=== PATIENT | male | born 1985 | race American Indian/Alaskan Native ===

== ENCOUNTER 2021-12-30 05:26 | Inpatient (IN) | payer SELFPAY ==
--- NOTE | 2021-12-30 07:14 | Emergency Department Report ---
ED Seizure HPI - General Chief Complaint: Seizure Stated Complaint: SEIZURE Time Seen by Provider: 12/30/21 06:27 Source: EMS Mode of arrival: Stretcher Limitations: No Limitations - History of Present Illness Initial Comments: 36-year-old male with a past medical history of alcohol abuse and unspecified heart condition presents to the hospital complaints of multiple seizures. Patient had several seizures witnessed by family. EMS arrived and he initially declined treatment and transport after their arrival. Patient had additional seizures and then subsequently was transported to the ED. Family reports that patient stop drinking alcohol 3 to 4 days ago. states that he has had tremors, confusion, and hallucinations during the last several days. patient is postictal and confused and unable to provide any history of present illness. No meds provided in route - Related Data Allergies Allergy/AdvReac Type Severity Reaction Status Date / Time No Known Allergies Allergy Unverified 12/30/21 06:56 ED Review of Systems ROS: Stated complaint: SEIZURE Other details as noted in HPI Comment: Unobtainable due to pts medical conditions ED Physical Exam - General Limitations: No Limitations - Other Other exam information: General: No acute distress Head: Atraumatic Eyes: normal appearance ENT: Mild lower lip injury/abrasion Neck: Normal appearance, no midline tenderness Chest: Clear to auscultation bilaterally CV: Tachycardic regular rhythm Abdomen: Soft, normal bowel sounds, nontender, nondistended, no rebound or guarding Back: Normal inspection Extremity: Normal inspection, diffusely tender to palpate Neuro: Altered, lethargic, responds to tactile stimulation but speaks incomprehensible words Skin: No rash ED Course Vital Signs 12/30/21 12/30/21 12/30/21 06:16 09:25 09:26 Temperature 98.1 F Pulse Rate 118 H 100 H Respiratory 20 16 Rate Blood Pressure 99/66 132/82 [Left] O2 Sat by Pulse 98 100 100 Oximetry ED Medical Decision Making - Lab Data Result diagrams: 12/30/21 06:47 12/30/21 06:47 Lab Results 12/30/21 12/30/21 12/30/21 Range/Units 06:47 06:47 06:47 WBC 9.5 (4.5-11.0) K/mm3 RBC 4.91 (3.65-5.03) M/mm3 Hgb 14.4 (11.8-15.2) gm/dl Hct 43.2 (35.5-45.6) % MCV 88 (84-94) fl MCH 29 (28-32) pg MCHC 33 (32-34) % RDW 13.4 (13.2-15.2) % Plt Count 200 (140-440) K/mm3 Lymph % (Auto) 14.0 (13.4-35.0) % [place] % (Auto) 7.1 (0.0-7.3) % Eos % (Auto) 0.6 (0.0-4.3) % Baso % (Auto) 0.3 (0.0-1.8) % Lymph # (Auto) 1.3 (1.2-5.4) K/mm3 [place] # (Auto) 0.7 (0.0-0.8) K/mm3 Eos # (Auto) 0.1 (0.0-0.4) K/mm3 Baso # (Auto) 0.0 (0.0-0.1) K/mm3 Seg Neutrophils % 78.0 H (40.0-70.0) % Seg Neutrophils # 7.4 (1.8-7.7) K/mm3 Sodium 127 L (137-145) mmol/L Potassium 4.1 (3.6-5.0) mmol/L Chloride 90.3 L (98-107) mmol/L Carbon Dioxide 22 (22-30) mmol/L Anion Gap 19 mmol/L BUN 13 (9-20) mg/dL Creatinine 1.2 (0.8-1.3) mg/dL Estimated GFR > 60 ml/min BUN/Creatinine Ratio 11 % Glucose 95 (75-100) mg/dL Calcium 10.4 H (8.4-10.2) mg/dL Magnesium 2.10 (1.7-2.3) mg/dL Total Bilirubin 1.00 (0.1-1.2) mg/dL AST 55 H (5-40) units/L ALT 23 (7-56) units/L Alkaline Phosphatase 56 (35-129) units/L Total Protein 8.2 (6.3-8.2) g/dL Albumin 4.9 (3.9-5) g/dL Albumin/Globulin Ratio 1.5 % Plasma/Serum Alcohol < 0.01 (0-0.07) % - EKG Data -: EKG Interpreted by Me (biatrial enlargement) EKG shows normal: sinus rhythm, ST-T waves (lvh) Rate: tachycardia (125) - EKG Data When compared to previous EKG there are: previous EKG unavailable - Radiology Data Radiology results: report reviewed CT head/brain wo con, CT cervical spine wo con INDICATION: alcoholic, seizure. TECHNIQUE: CT head and cervical spine without contrast. All CT scans at this location are performed using CT dose reduction for ALARA by means of automated exposure control. COMPARISON: None. FINDINGS: HEAD: Intracranial: Frazier-white matter differentiation is maintained. No intracranial hemorrhage. No extra axial collection.. No hydrocephalus. No herniation. Sinuses: Paranasal sinuses and mastoid air cells are essentially clear. Orbits: Globes are intact Calvarium: No acute fracture. CERVICAL: Alignment: Normal alignment. Vertebrae: No fracture. Vertebral body heights are preserved. C1 and C2 are congruent. Atlantooccipital joint is maintained. Spondylolysis: Mild spondylosis at C3-C4, C4-C5, C5-C6. Sclerosis and degenerative endplate changes at C3-C4. Soft tissues: No prevertebral soft tissue thickening. Additional findings: No significant additional findings. IMPRESSION: 1. No acute intracranial abnormality. 2.No cervical spine fracture. - Medical Decision Making 36-year-old male presents to the hospital with seizures and prolonged confusion. Fianc states that he has been tremulous with increasing confusion and hallucinations since stopping alcohol cold turkey 3 to 4 days ago. Patient received Keppra and Ativan in the ED. Will be placed on CIWA protocol and admitted to the hospitalist service for alcohol withdrawal delirium Critical Care Time: No Critical care attestation.: If time is entered above; I have spent that time in minutes in the direct care of this critically ill patient, excluding procedure time. ED Disposition Clinical Impression: Seizure, Alcohol withdrawal, Alcohol withdrawal delirium Disposition: ADMITTED INPATIENT Is pt being admited?: Yes Condition: Stable Time of Disposition: 12:03
[2021-12-30 07:16] LABS: Basophils % (Auto) 0.3 % (0.0-1.8); Eosinophils # (Auto) 0.1 K/mm3 (0.0-0.4); Eosinophils % (Auto) 0.6 % (0.0-4.3); Hematocrit 43.2 % (35.5-45.6); Hemoglobin 14.4 gm/dl (11.8-15.2); Lymphocytes # (Auto) 1.3 K/mm3 (1.2-5.4); Mean Corpuscular HGB Conc 33 % (32-34); Mean Corpuscular Volume 88 fl (84-94); Monocytes # (Auto) 0.7 K/mm3 (0.0-0.8); Monocytes % (Auto) 7.1 % (0.0-7.3); Platelet Count 200 K/mm3 (140-440); Red Blood Count 4.91 M/mm3 (3.65-5.03); Red Cell Distribution Width 13.4 % (13.2-15.2)
[2021-12-30 07:26] LABS: Alanine Aminotransferase 23 units/L (7-56); Albumin 4.9 g/dL (3.9-5); BUN/Creatinine Ratio 11; Blood Urea Nitrogen 13 mg/dL (9-20); Calcium 10.4 mg/dL (8.4-10.2); Hemolysis Index 2
[2021-12-30] MEDS ORDERED: LORazepam 2 MG/ML VIAL IV ONE (07:59)
[2021-12-30] MEDS ORDERED: levETIRAcetam 1000 MG/NS 0.75% 1,000 MG/100 ML BAG IV SCH (08:00)
[2021-12-30] MEDS ORDERED: SODIUM CHLORIDE 0.9% 1000 ML 1,000 ML IV ONE (08:00)
--- NOTE | 2021-12-30 08:11 | Electrocardiograph Report ---
[facility] Test Date: 2021-12-30 Test Time: 07:38:25 Pat Name: BARBARA RAMACHANDRAN Department: Room: Gender: M Country Director: ANTONIO : 1985 Requested By: AC SMART Order Number: [id number] Reading MD: Tyler Penaloza Measurements Intervals [place] Rate: 125 P: 87 OR: 148 QRS: 95 QRSD: 95 T: 60 QT: 325 QTc: 469 Interpretive Statements Sinus tachycardia LAE, consider biatrial enlargement Left ventricular hypertrophy ST elev, probable normal early repol pattern No previous ECG available for comparison Electronically Signed On 12-30-2021 8:10:49 EDT by Tyler Penaloza
[2021-12-30] MEDS ORDERED: THIAMINE 100 MG, FOLIC ACID 1 MG, MULTIPLE VITAMIN INJ, ADULT 10 ML in SODIUM CHLORIDE ... IV ONE (08:30)
--- NOTE | 2021-12-30 09:24 | Cat Scan Report ---
CT head/brain wo con, CT cervical spine wo con INDICATION: alcoholic, seizure. TECHNIQUE: CT head and cervical spine without contrast. All CT scans at this location are performed u sing CT dose reduction for ALARA by means of automated exposure control. COMPARISON: None. FINDINGS: HEAD: Intracranial: Frazier-white matter differentiation is maintained. No intracranial hemorrhage. No extra a xial collection.. No hydrocephalus. No herniation. Sinuses: Paranasal sinuses and mastoid air cells are essentially clear. Orbits: Globes are intact Calvarium: No acute fracture. CERVICAL: Alignment: Normal alignment. Vertebrae: No fracture. Vertebral body heights are preserved. C1 and C2 are congruent. Atlantooccipi darrius joint is maintained. Spondylolysis: Mild spondylosis at C3-C4, C4-C5, C5-C6. Sclerosis and degenerative endplate changes a t C3-C4. Soft tissues: No prevertebral soft tissue thickening. Additional findings: No significant additional findings. IMPRESSION: 1. No acute intracranial abnormality. 2.No cervical spine fracture. Signer Name: Sid Boyer MD Signed: 12/30/2021 9:20 AM Workstation Name: [id number]
[2021-12-30] MEDS ORDERED: ONDANSETRON 4 MG/2 ML INJ IV PRN (12:24)
[2021-12-30] MEDS ORDERED: HYDROmorphone 1 MG/1 ML INJ IV PRN (12:24)
[2021-12-30] MEDS ORDERED: MORPHINE 2 MG/1 ML INJ IV PRN (12:24)
[2021-12-30] MEDS ORDERED: ACETAMINOPHEN 325 MG TAB PO PRN (12:24)
[2021-12-30] MEDS ORDERED: METOCLOPRAMIDE 10 MG/2 ML INJ IV PRN (12:24)
[2021-12-30] MEDS: FAMOTIDINE 20 MG/2 ML INJ IV SCH ×2 (13:29→21:29)
--- NOTE | 2021-12-30 14:03 | Consultation ---
History of Present Illness Consult date: 12/30/21 Reason for Consult: Alcoholism and recurrent seizure History of present illness: 36-year-old male with a past medical history of alcohol abuse and unspecified heart condition presents to the hospital complaints of multiple seizures. Patient had several seizures witnessed by family. EMS arrived and he initially declined treatment and transport after their arrival. Patient had additional seizures and then subsequently was transported to the ED. Family reports that patient stop drinking alcohol 3 to 4 days ago. states that he has had tremors, confusion, and hallucinations during the last several days. patient is postictal and confused and unable to provide any history of present illness. No meds provided in route In ER he is seizure free lethargic not follow command,move all limbs CT brain is unremarkable he was loaded with keppra 1000 mg IV and ativan prn started on thiamine - Related Data Allergies Allergy/AdvReac Type Severity Reaction Status Date / Time No Known Allergies Allergy Unverified 12/30/21 06:56 ED Review of Systems ROS: Stated complaint: SEIZURE Other details as noted in HPI Comment: Unobtainable due to pts medical conditions Medications and Allergies Allergies Allergy/AdvReac Type Severity Reaction Status Date / Time No Known Allergies Allergy Unverified 12/30/21 06:56 Active Meds: Active Medications Acetaminophen (Acetaminophen 325 Mg Tab) 650 mg PO Q4H PRN PRN Reason: Pain MILD(1-3)/Fever >100.5/[place] Famotidine (Famotidine 20 Mg/2 Ml Inj) 20 mg IV BID DAVINA Last Admin: 12/30/21 13:29 Dose: 20 mg Heparin Sodium (Porcine) (Heparin 5,000 Unit/1 Ml Vial) 5,000 unit SUB-Q Q12HR DAVINA Hydromorphone HCl (Hydromorphone 1 Mg/1 Ml Inj) 0.5 mg IV Q3H PRN PRN Reason: Pain , Severe (7-10) Dextrose/Sodium Chloride (D5ns) 1,000 mls @ 125 mls/hr IV DIRECT DAVINA Metoclopramide HCl (Metoclopramide 10 Mg/2 Ml Inj) 10 mg IV Q6H PRN PRN Reason: Nausea And Vomiting Morphine Sulfate (Morphine 2 Mg/1 Ml Inj) 2 mg IV Q4H PRN PRN Reason: Pain, Moderate (4-6) Ondansetron HCl (Ondansetron 4 Mg/2 Ml Inj) 4 mg IV Q8H PRN PRN Reason: Nausea And Vomiting Sodium Chloride (Sodium Chloride 0.9% 10 Ml Flush Syringe) 10 ml IV BID DAVINA Sodium Chloride (Sodium Chloride 0.9% 10 Ml Flush Syringe) 10 ml IV PRN PRN PRN Reason: LINE FLUSH Physical Examination - Vital Signs Vital Signs: Vital Signs Temp Pulse Resp BP Pulse Ox 98.1 F 118 H 20 99/66 98 12/30/21 06:16 12/30/21 06:16 12/30/21 06:16 12/30/21 06:16 12/30/21 06:16 - Constitutional General appearance: comfortable - EENT EENT: Present: PERRL, mucous membranes moist - Respiratory Respiratory: Present: lungs clear, rhonchi - Cardiovascular Cardiovascular: Present: regular rate, normal S1, normal S2 Extremities: Present: no peripheral edema bilatateraly, no clubbing, cyanosis - Gastrointestinal Gastrointestinal: Present: normoactive bowel sounds - Integumentary Integumentary: Present: normal - Neurologic Cranial nerve examination: PERRL, EOMI, intact Speech examination: other (sleepy ) Detailed motor examination: grossly full strength in Results - Laboratory Findings CBC and BMP: 12/30/21 06:47 12/30/21 06:47 Abnormal Lab Findings: Abnormal Labs 12/30/21 12/30/21 06:47 06:47 Seg Neutrophils % 78.0 H Sodium 127 L Chloride 90.3 L Calcium 10.4 H AST 55 H Assessment and Plan ED Physical Exam Assessment and Plan- 36-year-old male presents to the hospital with seizures and prolonged confusion. Fianc states that he has been tremulous with increasing confusion and hallucinations since stopping alcohol cold turkey 3 to 4 days ago. Patient received Keppra and Ativan in the ED. Will be placed on CIWA protocol and admitted to the hospitalist service for alcohol withdrawal delirium # Recurrent seizure - pt. is lethgergic -move all limbs - findings are suggestive post ictal state -CT brain is unremarkable -EEG today -seizure precaution -Ativan PRN for seizure -hold keppra for now # Alcohol withdrawal -Thiamin Iv - Ativan prn -treat underlying withdrawal # Hyponatremia - Serum Na#127 -NS gradual correction of hyponatremia # DVT praeacution -SQ heparine
[2021-12-30] MEDS: HEPARIN 5,000 UNIT/1 ML VIAL SUB-Q SCH ×2 (14:16→21:29)
[2021-12-30] MEDS: D5W/0.9% NACL 1,000 ML IV SCH (15:42)
[2021-12-31] MEDS: D5W/0.9% NACL 1,000 ML IV SCH (05:38)
[2021-12-31 06:36] LABS: Basophils % (Auto) 0.6 % (0.0-1.8); Eosinophils # (Auto) 0.1 K/mm3 (0.0-0.4); Eosinophils % (Auto) 2.1 % (0.0-4.3); Hematocrit 43.2 % (35.5-45.6); Hemoglobin 13.9 gm/dl (11.8-15.2); Lymphocytes # (Auto) 1.9 K/mm3 (1.2-5.4); Mean Corpuscular HGB Conc 32 % (32-34); Mean Corpuscular Volume 90 fl (84-94); Monocytes # (Auto) 0.7 K/mm3 (0.0-0.8); Monocytes % (Auto) 13.2 % (0.0-7.3); Platelet Count 198 K/mm3 (140-440); Red Blood Count 4.78 M/mm3 (3.65-5.03); Red Cell Distribution Width 13.5 % (13.2-15.2)
[2021-12-31 06:46] LABS: Alanine Aminotransferase 28 units/L (7-56); Albumin 4.3 g/dL (3.9-5); BUN/Creatinine Ratio 9; Blood Urea Nitrogen 10 mg/dL (9-20); Calcium 9.2 mg/dL (8.4-10.2); Hemolysis Index 4
--- NOTE | 2021-12-31 06:57 | History and Physical Report ---
History of Present Illness Date of examination: 12/30/21 Date of admission: 12/30/21 12:24 Chief complaint: Recurrent seizures since a.m. History of present illness: 36-year-old -[place] male with history of EtOH dependence comes in for multiple seizures since a.m. Apparently tonic-clonic seizures as witnessed by the family. Patient has a history of alcohol abuse. Patient states he stopped drinking about 4 days ago. Apparently drinks 750 mils of vodka. No alcohol intake for the last 4 days. Patient initially declined treatment and transportation when the EMS arrived. Patient had additional witnessed seizures in the EMS in the emergency room. states that the patient has confusion and hallucinations and tremors for the last several days. During my examination patient was postictal. Confused and lethargic. During reexamination patient was more alert and oriented around 18 hours. No tremulousness. Past History Past Medical History: seizures, other (EtOH dependence) Past Surgical History: No surgical history Social history: alcohol abuse (Drinks alcohol at least 3 times a week but in large quantities.) Family history: hypertension Medications and Allergies Allergies Allergy/AdvReac Type Severity Reaction Status Date / Time No Known Allergies Allergy Unverified 12/30/21 06:56 Home Medications Medication Instructions Recorded Confirmed Last Taken Type No Known Home Medications [No 12/30/21 12/30/21 Unknown History Reported Home Medications] Active Meds: Active Medications Acetaminophen (Acetaminophen 325 Mg Tab) 650 mg PO Q4H PRN PRN Reason: Pain MILD(1-3)/Fever >100.5/[place] Famotidine (Famotidine 20 Mg/2 Ml Inj) 20 mg IV BID [facility] Last Admin: 12/30/21 21:29 Dose: 20 mg Heparin Sodium (Porcine) (Heparin 5,000 Unit/1 Ml Vial) 5,000 unit SUB-Q Q12HR DAVINA Last Admin: 12/30/21 21:29 Dose: 5,000 unit Hydromorphone HCl (Hydromorphone 1 Mg/1 Ml Inj) 0.5 mg IV Q3H PRN PRN Reason: Pain , Severe (7-10) Dextrose/Sodium Chloride (D5ns) 1,000 mls @ 125 mls/hr IV DIRECT [facility] Last Admin: 12/31/21 05:38 Dose: 125 mls/hr Metoclopramide HCl (Metoclopramide 10 Mg/2 Ml Inj) 10 mg IV Q6H PRN PRN Reason: Nausea And Vomiting Morphine Sulfate (Morphine 2 Mg/1 Ml Inj) 2 mg IV Q4H PRN PRN Reason: Pain, Moderate (4-6) Last Admin: 12/31/21 00:05 Dose: 2 mg Ondansetron HCl (Ondansetron 4 Mg/2 Ml Inj) 4 mg IV Q8H PRN PRN Reason: Nausea And Vomiting Sodium Chloride (Sodium Chloride 0.9% 10 Ml Flush Syringe) 10 ml IV BID DAVINA Last Admin: 12/30/21 21:30 Dose: 10 ml Sodium Chloride (Sodium Chloride 0.9% 10 Ml Flush Syringe) 10 ml IV PRN PRN PRN Reason: LINE FLUSH Review of Systems All systems: negative Constitutional: no weight loss, no weight gain, no fever, no chills Ears, nose, mouth and throat: deferred Respiratory: no cough, no cough with sputum, no excessive sputum, no hemoptysis, no shortness of breath, no dyspnea on exertion Gastrointestinal: no abdominal pain, no nausea, no vomiting, no diarrhea, no constipation, no change in bowel habits, no hematemesis, no coffee ground emesis Genitourinary Male: no urinary frequency, no urinary hesitancy Musculoskeletal: no neck stiffness, no neck pain, no shooting arm pain, no arm numbness/tingling, no low back pain Integumentary: no rash, no pruritis, no redness, no sores Neurological: seizures Psychiatric: anxiety Endocrine: no cold intolerance, no heat intolerance, no polyphagia Hematologic/Lymphatic: easy bruising, easy bleeding Allergic/Immunologic: urticaria, allergic rhinitis, wheezing Exam - Constitutional Vitals: Temp Pulse Resp BP Pulse Ox 96.3 F L 86 16 124/81 98 12/31/21 05:33 12/31/21 05:33 12/31/21 05:33 12/31/21 05:33 12/31/21 05:33 General appearance: Present: no acute distress, well-nourished - EENT Eyes: Present: PERRL ENT: hearing intact, clear oral mucosa - Neck Neck: Present: supple, normal ROM - Respiratory Respiratory effort: normal Respiratory: bilateral: CTA - Cardiovascular Rhythm: regular Heart Sounds: Present: S1 & S2. Absent: rub, click - Extremities Extremities: pulses symmetrical, No edema Peripheral Pulses: within normal limits - Abdominal General gastrointestinal: Present: soft, non-tender, non-distended, normal bowel sounds Male genitourinary: Present: normal - Rectal Rectal Exam: deferred - Integumentary Integumentary: Present: clear, warm, dry - Musculoskeletal Musculoskeletal: strength equal bilaterally - Psychiatric Psychiatric: depressed, other (Lethargic and agitated) - Neurologic Neurologic: CNII-XII intact, moves all extremities - Allied Health Allied health notes reviewed: nursing, case management Results - Labs CBC & Chem 7: 12/31/21 06:02 12/31/21 06:02 Labs: Laboratory Last Values WBC 5.5 K/mm3 (4.5-11.0) 12/31/21 06:02 RBC 4.78 M/mm3 (3.65-5.03) 12/31/21 06:02 Hgb 13.9 gm/dl (11.8-15.2) 12/31/21 06:02 Hct 43.2 % (35.5-45.6) 12/31/21 06:02 MCV 90 fl (84-94) 12/31/21 06:02 MCH 29 pg (28-32) 12/31/21 06:02 MCHC 32 % (32-34) 12/31/21 06:02 RDW 13.5 % (13.2-15.2) 12/31/21 06:02 Plt Count 198 K/mm3 (140-440) 12/31/21 06:02 Lymph % (Auto) 35.0 % (13.4-35.0) 12/31/21 06:02 [place] % (Auto) 13.2 % (0.0-7.3) H 12/31/21 06:02 Eos % (Auto) 2.1 % (0.0-4.3) 12/31/21 06:02 Baso % (Auto) 0.6 % (0.0-1.8) 12/31/21 06:02 Lymph # (Auto) 1.9 K/mm3 (1.2-5.4) 12/31/21 06:02 [place] # (Auto) 0.7 K/mm3 (0.0-0.8) 12/31/21 06:02 Eos # (Auto) 0.1 K/mm3 (0.0-0.4) 12/31/21 06:02 Baso # (Auto) 0.0 K/mm3 (0.0-0.1) 12/31/21 06:02 Seg Neutrophils % 49.1 % (40.0-70.0) 12/31/21 06:02 Seg Neutrophils # 2.7 K/mm3 (1.8-7.7) 12/31/21 06:02 Sodium 127 mmol/L (137-145) L 12/30/21 06:47 Potassium 4.1 mmol/L (3.6-5.0) 12/31/21 06:02 Chloride 99.9 mmol/L (98-107) 12/31/21 06:02 Carbon Dioxide 23 mmol/L (22-30) 12/31/21 06:02 Anion Gap 16 mmol/L 12/31/21 06:02 BUN 10 mg/dL (9-20) 12/31/21 06:02 Creatinine 1.1 mg/dL (0.8-1.3) 12/31/21 06:02 Estimated GFR > 60 ml/min 12/31/21 06:02 BUN/Creatinine Ratio 9 % 12/31/21 06:02 Glucose 108 mg/dL (75-100) H 12/31/21 06:02 Calcium 9.2 mg/dL (8.4-10.2) 12/31/21 06:02 Magnesium 2.10 mg/dL (1.7-2.3) 12/30/21 06:47 Total Bilirubin 0.70 mg/dL (0.1-1.2) 12/31/21 06:02 AST 93 units/L (5-40) H 12/31/21 06:02 ALT 28 units/L (7-56) 12/31/21 06:02 Alkaline Phosphatase 50 units/L (35-129) 12/31/21 06:02 Total Protein 7.4 g/dL (6.3-8.2) 12/31/21 06:02 Albumin 4.3 g/dL (3.9-5) 12/31/21 06:02 Albumin/Globulin Ratio 1.4 % 12/31/21 06:02 Plasma/Serum Alcohol < 0.01 % (0-0.07) 12/30/21 06:47 Perez/IV: Voiding Method Toilet Assessment and Plan Advance Directives: Yes (Full code) VTE prophylaxis?: Chemical Plan of care discussed with patient/family: Yes - Patient Problems (1) Acute encephalopathy Current Visit: Yes Status: Acute Plan to address problem: Secondary procedures IV fluids IV Keppra (2) Status epilepticus Current Visit: Yes Status: Acute Plan to address problem: Patient initiated on IV Keppra and IV Ativan Neurology consult requested (3) EtOH dependence Current Visit: Yes Status: Chronic Qualifiers: Substance use status: uncomplicated Qualified Code(s): F10.20 - Alcohol dependence, uncomplicated Plan to address problem: No tremulousness during my repeat examination CIWA protocol initiated Patient counseled about alcoholism (4) DVT prophylaxis Current Visit: Yes Status: Acute Plan to address problem: On anticoagulation GI prophylaxis (5) Advance care planning Current Visit: Yes Status: Acute Plan to address problem: Disease education collected, care plan discussed, diagnosis discussed, prognosis discussed. Patient is full code. Patient acknowledged understanding and agreement with care plan. +30 minutes.
[2021-12-31 07:32] VITALS: BP 123/77
--- NOTE | 2021-12-31 08:47 | Progress Note ---
Assessment and Plan Assessment and plan: History of present illness: 36-year-old -Portuguese male with history of EtOH dependence comes in for multiple seizures since a.m. Apparently tonic-clonic seizures as witnessed by the family. Patient has a history of alcohol abuse. Patient states he stopped drinking about 4 days ago. Apparently drinks 750 mils of vodka. No alcohol intake for the last 4 days. Patient initially declined treatment and transportation when the EMS arrived. Patient had additional witnessed seizures in the EMS in the emergency room. states that the patient has confusion and hallucinations and tremors for the last several days. During my examination patient was postictal. Confused and lethargic. During reexamination patient was more alert and oriented around 18 hours. No tremulousness. Hospital course 12/31: Assessment and plan (1) Acute encephalopathy Current Visit: Yes Status: Acute Plan to address problem: Secondary procedures IV fluids IV Keppra (2) Status epilepticus Current Visit: Yes Status: Acute Plan to address problem: Patient initiated on IV Keppra and IV Ativan Neurology consult requested (3) EtOH dependence Current Visit: Yes Status: Chronic Qualifiers: Substance use status: uncomplicated Qualified Code(s): F10.20 - Alcohol dependence, uncomplicated Plan to address problem: No tremulousness during my repeat examination CIWA protocol initiated Patient counseled about alcoholism (4) DVT prophylaxis Current Visit: Yes Status: Acute Plan to address problem: On anticoagulation GI prophylaxis (5) Advance care planning Current Visit: Yes Status: Acute Plan to address problem: Disease education collected, care plan discussed, diagnosis discussed, prognosis discussed. Patient is full code. Patient acknowledged understanding and agreement with care plan. +30 minutes. Hospitalist Physical - Constitutional Vitals: Temp Pulse Resp BP Pulse Ox 97.9 F 74 16 123/77 99 12/31/21 07:24 12/31/21 07:24 12/31/21 07:24 12/31/21 07:24 12/31/21 07:44 General appearance: Present: no acute distress, well-nourished Results - Labs CBC & Chem 7: 12/31/21 06:02 12/31/21 06:02 Labs: Laboratory Last Values WBC 5.5 K/mm3 (4.5-11.0) 12/31/21 06:02 RBC 4.78 M/mm3 (3.65-5.03) 12/31/21 06:02 Hgb 13.9 gm/dl (11.8-15.2) 12/31/21 06:02 Hct 43.2 % (35.5-45.6) 12/31/21 06:02 MCV 90 fl (84-94) 12/31/21 06:02 MCH 29 pg (28-32) 12/31/21 06:02 MCHC 32 % (32-34) 12/31/21 06:02 RDW 13.5 % (13.2-15.2) 12/31/21 06:02 Plt Count 198 K/mm3 (140-440) 12/31/21 06:02 Lymph % (Auto) 35.0 % (13.4-35.0) 12/31/21 06:02 [place] % (Auto) 13.2 % (0.0-7.3) H 12/31/21 06:02 Eos % (Auto) 2.1 % (0.0-4.3) 12/31/21 06:02 Baso % (Auto) 0.6 % (0.0-1.8) 12/31/21 06:02 Lymph # (Auto) 1.9 K/mm3 (1.2-5.4) 12/31/21 06:02 [place] # (Auto) 0.7 K/mm3 (0.0-0.8) 12/31/21 06:02 Eos # (Auto) 0.1 K/mm3 (0.0-0.4) 12/31/21 06:02 Baso # (Auto) 0.0 K/mm3 (0.0-0.1) 12/31/21 06:02 Seg Neutrophils % 49.1 % (40.0-70.0) 12/31/21 06:02 Seg Neutrophils # 2.7 K/mm3 (1.8-7.7) 12/31/21 06:02 Sodium 135 mmol/L (137-145) L D 12/31/21 06:02 Potassium 4.1 mmol/L (3.6-5.0) 12/31/21 06:02 Chloride 99.9 mmol/L (98-107) 12/31/21 06:02 Carbon Dioxide 23 mmol/L (22-30) 12/31/21 06:02 Anion Gap 16 mmol/L 12/31/21 06:02 BUN 10 mg/dL (9-20) 12/31/21 06:02 Creatinine 1.1 mg/dL (0.8-1.3) 12/31/21 06:02 Estimated GFR > 60 ml/min 12/31/21 06:02 BUN/Creatinine Ratio 9 % 12/31/21 06:02 Glucose 108 mg/dL (75-100) H 12/31/21 06:02 Calcium 9.2 mg/dL (8.4-10.2) 12/31/21 06:02 Magnesium 2.10 mg/dL (1.7-2.3) 12/30/21 06:47 Total Bilirubin 0.70 mg/dL (0.1-1.2) 12/31/21 06:02 AST 93 units/L (5-40) H 12/31/21 06:02 ALT 28 units/L (7-56) 12/31/21 06:02 Alkaline Phosphatase 50 units/L (35-129) 12/31/21 06:02 Total Protein 7.4 g/dL (6.3-8.2) 12/31/21 06:02 Albumin 4.3 g/dL (3.9-5) 12/31/21 06:02 Albumin/Globulin Ratio 1.4 % 12/31/21 06:02 Plasma/Serum Alcohol < 0.01 % (0-0.07) 12/30/21 06:47 Perez/IV: Voiding Method Toilet Active Medications - Current Medications Current Medications: Generic Name Dose Route Start Last Admin Trade Name Freq PRN Reason Stop Dose Admin Acetaminophen 650 mg 12/30/21 12:24 Acetaminophen 325 Mg Tab PO Q4H PRN Pain MILD(1-3)/Fever >100.5/[place] Famotidine 20 mg 12/30/21 14:00 12/30/21 21:29 Famotidine 20 Mg/2 Ml Inj IV 20 mg BID DAVINA Administration Heparin Sodium (Porcine) 5,000 unit 12/30/21 14:30 12/30/21 21:29 Heparin 5,000 Unit/1 Ml Vial SUB-Q 5,000 unit Q12HR DAVINA Administration Hydromorphone HCl 0.5 mg 12/30/21 12:24 Hydromorphone 1 Mg/1 Ml Inj IV Q3H PRN Pain , Severe (7-10) Dextrose/Sodium Chloride 1,000 mls @ 125 mls/hr 12/30/21 14:00 12/31/21 05:38 D5ns IV 125 mls/hr DIRECT DAVINA Administration Metoclopramide HCl 10 mg 12/30/21 12:24 Metoclopramide 10 Mg/2 Ml Inj IV Q6H PRN Nausea And Vomiting Morphine Sulfate 2 mg 12/30/21 12:24 12/31/21 00:05 Morphine 2 Mg/1 Ml Inj IV 2 mg Q4H PRN Administration Pain, Moderate (4-6) Ondansetron HCl 4 mg 12/30/21 12:24 Ondansetron 4 Mg/2 Ml Inj IV Q8H PRN Nausea And Vomiting Sodium Chloride 10 ml 12/30/21 22:00 12/30/21 21:30 Sodium Chloride 0.9% 10 Ml Flush Syringe IV 10 ml BID DAVINA Administration Sodium Chloride 10 ml 12/30/21 12:24 Sodium Chloride 0.9% 10 Ml Flush Syringe IV PRN PRN LINE FLUSH
[2021-12-31] MEDS: FAMOTIDINE 20 MG/2 ML INJ IV SCH (09:27)
[2021-12-31] MEDS: HEPARIN 5,000 UNIT/1 ML VIAL SUB-Q SCH (09:27)
--- NOTE | 2021-12-31 11:55 | Progress Note ---
Assessment and Plan Assessment and Plan 36-year-old male presents to the hospital with seizures and prolonged confusion. Fianc states that he has been tremulous with increasing confusion and hallucinations since stopping alcohol cold turkey 3 to 4 days ago. Patient received Keppra and Ativan in the ED. Will be placed on CIWA protocol and admitted to the hospitalist service for alcohol withdrawal delirium # Recurrent seizure - pt. is alert oriented -move all limbs - findings are suggestive seizure related to alcohol withdrawal -UDS is positive for C[place] , alcohol is #0 -CT brain is unremarkable -EEG diffuse slowing -seizure precaution -Ativan PRN for seizure - no indication for treatment of seizure ++++ Avoid alcohol and recreational drugs ++++ Seizure precaution no driving and follow up with neurology # Alcohol withdrawal -Thiamin Iv - Ativan prn -treat underlying withdrawal # Hyponatremia - Serum Na#127-- 135 -NS gradual correction of hyponatremia # DVT praeacution -SQ heparine will follow as needed Subjective Date of service: 12/31/21 Principal diagnosis: seizure, hyponatremia Interval history: pt. is alert interactive denied hx of seizure before , he bit his tongue yesterday he drives according to him he drinks prn not on daily basis denied recreational drug intake , some one gave him tablet to take but he did not know what it is !!! NA today #135 Ct brain is unremarkable EEG diffuse slowing Objective - Vital Sign Vital Signs - 12hr 12/30/21 12/31/21 12/31/21 23:56 00:00 01:54 Temperature 99.4 F Pulse Rate 93 H 88 Respiratory 16 Rate Blood Pressure 121/88 O2 Sat by Pulse 99 99 Oximetry 12/31/21 12/31/21 12/31/21 04:00 05:33 07:24 Temperature 96.3 F L 97.9 F Pulse Rate 87 86 74 Respiratory 16 16 Rate Blood Pressure 124/81 123/77 O2 Sat by Pulse 98 98 Oximetry 12/31/21 07:44 Temperature Pulse Rate Respiratory Rate Blood Pressure O2 Sat by Pulse 99 Oximetry - General Apperance Constitutional: comfortable - EENT EENT: PERRL, mucous membranes moist - Respiratory Respiratory: lungs clear, rhonchi - Cardiovascular Cardiovascular: regular rate, normal S1, normal S2 Extremities: no peripheral edema bilat, no clubbing, cyanosis - Gastrointestinal Gastrointestinal: normoactive bowel sounds - Integumentary Integumentary: normal - Neurologic Cranial nerve examination: PERRL, EOMI, intact Speech examination: intact Detailed motor examination: grossly full strength in - Laboratory Findings CBC and BMP: 12/31/21 06:02 12/31/21 06:02 Abnormal Lab Findings: Abnormal Labs 12/30/21 12/30/21 12/31/21 06:47 06:47 06:02 [place] % (Auto) 13.2 H Seg Neutrophils % 78.0 H Sodium 127 L Chloride 90.3 L Glucose Calcium 10.4 H AST 55 H 12/31/21 06:02 [place] % (Auto) Seg Neutrophils % Sodium 135 L D Chloride Glucose 108 H Calcium AST 93 H
--- NOTE | 2021-12-31 13:21 | Discharge Summary ---
Providers - Providers Date of Admission: 12/30/21 12:24 Attending physician: LYNSEY RUIZ MD 12/30/21 12:24 Consult to Physician [CONS] Routine Comment: Consulting Provider: AMBER BORRERO Physician Instructions: Reason For Exam: seizure disorder Primary care physician: MACHINE [employer] Hospitalization Reason for admission: Seizure Condition: Stable Hospital course: History of present illness: 36-year-old -Portuguese male with history of EtOH dependence comes in for multiple seizures since a.m. Apparently tonic-clonic seizures as witnessed by the family. Patient has a history of alcohol abuse. Patient states he stopped drinking about 4 days ago. Apparently drinks 750 mils of vodka. No alcohol intake for the last 4 days. Patient initially declined treatment and transportation when the EMS arrived. Patient had additional witnessed seizures in the EMS in the emergency room. states that the patient has confusion and hallucinations and tremors for the last several days. During my examination patient was postictal. Confused and lethargic. During reexamination patient was more alert and oriented around 18 hours. No tremulousness. Hospital course 12/31: Patient was admitted for acute metabolic encephalopathy and status epilepticus secondary to alcoholic withdrawal. Patient was monitored and observed overnight in our facility and has been seizure-free since his event in the emergency department. On my encounter the patient was alert and oriented x4. He no longer had any confusion, hallucination, tremors. I discussed alcohol cessation and the dangers of continuing drinking. I also discussed the need to avoid any recreational drugs such as cocaine which was found in his urine drug screen. He was advised to establish with primary care doctor as an outpatient and to avoid operating a motor vehicle until cleared by his primary care physician. He will be given a ride home from the hospital by family member. BLAYNE Arreola notified of plan for today and instructions that patient should not be driving home. Assessment and plan (1) Acute encephalopathy Current Visit: Yes Status: Acute Plan to address problem: Secondary procedures IV fluids IV Keppra (2) Status epilepticus Current Visit: Yes Status: Acute Plan to address problem: Patient initiated on IV Keppra and IV Ativan Neurology consult requested (3) EtOH dependence Current Visit: Yes Status: Chronic Qualifiers: Substance use status: uncomplicated Qualified Code(s): F10.20 - Alcohol dependence, uncomplicated Plan to address problem: No tremulousness during my repeat examination [place] protocol initiated Patient counseled about alcoholism (4) DVT prophylaxis Current Visit: Yes Status: Acute Plan to address problem: On anticoagulation GI prophylaxis (5) Advance care planning Current Visit: Yes Status: Acute Plan to address problem: Disease education collected, care plan discussed, diagnosis discussed, prognosis discussed. Patient is full code. Patient acknowledged understanding and agreement with care plan. +30 minutes. Disposition: HOME / SELF CARE / HOMELESS Final Discharge Diagnosis (Prints w/discharge instructions): Alcoholic seizure Time spent for discharge: 35 Core Measure Documentation - Palliative Care Palliative Care/ Comfort Measures: Not Applicable - Core Measures Any of the following diagnoses?: none Exam - Physical Exam Narrative exam: General appearance: Present: no acute distress, well-nourished - EENT Eyes: Present: PERRL ENT: hearing intact, clear oral mucosa - Neck Neck: Present: supple, normal ROM - Respiratory Respiratory effort: normal Respiratory: bilateral: CTA - Cardiovascular Rhythm: regular Heart Sounds: Present: S1 & S2. Absent: rub, click - Extremities Extremities: pulses symmetrical, No edema Peripheral Pulses: within normal limits - Abdominal General gastrointestinal: Present: soft, non-tender, non-distended, normal bowel sounds Male genitourinary: Present: normal - Rectal Rectal Exam: deferred - Integumentary Integumentary: Present: clear, warm, dry - Musculoskeletal Musculoskeletal: strength equal bilaterally - Psychiatric Psychiatric: depressed, other (Lethargic and agitated) - Neurologic Neurologic: CNII-XII intact, moves all extremities - Allied Health Allied health notes reviewed: nursing, case management - Constitutional Vitals: Temp Pulse Resp BP Pulse Ox 97.9 F 74 16 123/77 99 12/31/21 07:24 12/31/21 07:24 12/31/21 07:24 12/31/21 07:24 12/31/21 07:44 Plan Plan of Treatment: Patient was admitted for acute metabolic encephalopathy and status epilepticus secondary to alcoholic withdrawal. Patient was monitored and observed overnight in our facility and has been seizure-free since his event in the emergency department. On my encounter the patient was alert and oriented x4. He no longer had any confusion, hallucination, tremors. I discussed alcohol cessation and the dangers of continuing drinking. I also discussed the need to avoid any recreational drugs such as cocaine which was found in his urine drug screen. He was advised to establish with primary care doctor as an outpatient and to avoid operating a motor vehicle until cleared by his primary care physician. He will not be requiring any prescription medications. He will be given a ride home from the hospital by family member. BLAYNE Arreola notified of plan for today and instructions that patient should not be driving home. Follow up with: PRIMARY CARE, [Primary Care Provider] - 7 Days
== END 2021-12-31 15:00 | disposition home or self-care (01) | DRG 101 ==
LOC: EDBD → ED 05:26 → 4A 12:24
PROVIDERS: ADMIT Internal Medicine; ATTEND Internal Medicine
DX: G40.901 Epilepsy, unspecified, not intractable, with status epilepticus (principal); F10.239 Alcohol dependence with withdrawal, unspecified; E87.1 Hypo-osmolality and hyponatremia; Y90.9 Presence of alcohol in blood, level not specified; Z82.49 Family history of ischemic heart disease and other diseases of the circulatory system
CPT/HCPCS: 36415; 70450; 72125; 80053; 80320; 83735; 85025; 93005; G0378; J3490; Q0162; G0480; J1644; J1953; J2060; J2270; J3411; J7030; J7042